=== PATIENT | male | born 1980 | race Two or more races ===

== ENCOUNTER 2025-01-11 17:26 | Emergency (ER) | payer OTHER ==
[~2025-01-11] VITALS: Ht 182.9 cm; Wt 112.0 kg
[2025-01-11] MEDS ORDERED: COZAAR25 MG (17:47)
[2025-01-11 19:03] LABS: BASO % 0.1 % (0.1-1.2); EOS # 0.00 (0.04-0.54); EOS % 0.0 % (0.7-7.0); LYMPH # 0.72 (1.18-3.74); LYMPH % 5.1 % (19.3-53.1); MEAN PLATELET VOLUME 9.70 fl (9.4-12.4); MONO # 0.57 (0.24-0.82); MONO % 4.0 % (4.7-12.5); NEUT # 12.88 (1.56-6.13); NEUT % 90.4 % (34.0-71.1); RED CELL DISTRIBUTION WIDTH 13.4 % (11.6-14.4)
[2025-01-11 19:20] LABS: COVID-19 AG NEGATIVE (NEGATIVE)
[2025-01-11 19:24] LABS: URINE APPEARANCE Clear; URINE BILIRRUBIN Negative (NEGATIVE); URINE BLOOD Large; URINE COLOR Yellow; URINE KETONE Trace (NEGATIVE); URINE LEUKOCYTE Trace; URINE NITRATE Negative; URINE PROTEIN Trace (NEGATIVE); URINE UROBILINOGEN 1.0 E.U./dl
[2025-01-11 19:24] LABS: ALT/SGPT 58.0 U/L (12-78); AST/SGOT 21.0 U/L (15-37); BILIRUBIN TOTAL 0.83 mg/dL (0.3-1.2); BUN CREA RATIO 10.0 (7.0-25.0); CREATININE SERUM 1.23 mg/dL (0.70-1.30); GFR 63.35; GLOBULINA 3.7 G/DL (2.4-3.5); GLUCOSE FASTING 175.0 mg/dL (65-100); OSMOLALITY SERUM 287.0 MOSM/KG (275-295)
[2025-01-11 19:25] LABS: URINE BACTERIA 45.5 uL (0.0-1933); URINE EPITHELIAL CELLS 2.3 uL (0.0-38.8); URINE RBC 4055.5 uL (0.0-20.8); URINE WBC 15.5 uL (0.0-23.2)
[2025-01-11 19:37] LABS: URINE CAST 0.00 uL (0.0-1.40); URINE GLUCOSE 100 MG/DL (NEGATIVE)
[2025-01-11] MEDS ORDERED: KETOROLAC TROMETHAMINE 60 MG VIAL IM ONE (21:00)
[2025-01-11] MEDS ORDERED: ONDANSETRON HCL 2 MG/ML VIAL IV ONE (21:00)
[2025-01-11] MEDS ORDERED: IBUPROFEN800 MG PO (22:40)
[2025-01-11] MEDS ORDERED: LEVOFLOXACIN500 MG PO (22:40)
[2025-01-11] MEDS ORDERED: CEFTRIAXONE SODIUM 1,000 MG VIAL IM ONE (23:00)
== END 2025-01-11 23:05 | disposition home or self-care (01) ==
LOC: ER 17:26
PROVIDERS: Preventive Medicine Public Health & General Preventive Medicine
DX: N43.3 Hydrocele, unspecified (principal); N45.1 Epididymitis; Z20.822 Contact with and (suspected) exposure to COVID-19

== ENCOUNTER 2025-04-20 17:51 | Emergency (ER) | payer OTHER ==
[~2025-04-20] VITALS: Ht 182.9 cm; Wt 112.0 kg
[~2025-04-20 17:51] MED LIST: COZAAR25 MG; IBUPROFEN800 MG PO; LEVOFLOXACIN500 MG PO
[2025-04-20 20:28] VITALS: BP 126/78; O2SAT 99
[2025-04-20] MEDS ORDERED: HYDROCHLOROTHIA25 MG (20:28)
[2025-04-20] MEDS ORDERED: DEXAMETHASONE SODIUM PHOSPHATE 4 MG/ML VIAL IM STA (20:55)
[2025-04-20] MEDS ORDERED: KETOROLAC TROMETHAMINE 30 MG VIAL IM STA (20:55)
[2025-04-20] MEDS ORDERED: ORPHENADRINE CITRATE 30 MG/ML AMPUL IM STA (20:55)
[2025-04-20] MEDS ORDERED: ORPHENADRINE CITRATE 30 MG/ML AMPUL ONE (21:14)
[2025-04-20] MEDS ORDERED: KETOROLAC TROMETHAMINE 30 MG VIAL ONE (21:15)
[2025-04-20 21:37] LABS: BASO % 0.3 % (0.1-1.2); EOS # 0.04 (0.04-0.54); EOS % 0.4 % (0.7-7.0); LYMPH # 1.74 (1.18-3.74); LYMPH % 18.2 % (19.3-53.1); MEAN PLATELET VOLUME 9.40 fl (9.4-12.4); MONO # 1.11 (0.24-0.82); MONO % 11.6 % (4.7-12.5); NEUT # 6.60 (1.56-6.13); NEUT % 69.3 % (34.0-71.1); RED CELL DISTRIBUTION WIDTH 12.9 % (11.6-14.4)
[2025-04-20 22:12] LABS: INR 1.04
[2025-04-20 22:18] LABS: ALT/SGPT 36.0 U/L (12-78); AST/SGOT 14.0 U/L (15-37); BILIRUBIN TOTAL 1.19 mg/dL (0.3-1.2); BUN CREA RATIO 13.0 (7.0-25.0); CREATININE SERUM 0.93 mg/dL (0.70-1.30); GFR 87.47; GLOBULINA 3.7 G/DL (2.4-3.5); GLUCOSE FASTING 105.0 mg/dL (65-100); OSMOLALITY SERUM 278.0 MOSM/KG (275-295)
[2025-04-20 23:14] LABS: URINE APPEARANCE Clear; URINE BILIRRUBIN Negative (NEGATIVE); URINE BLOOD Negative; URINE COLOR Yellow; URINE GLUCOSE Negative (NEGATIVE); URINE KETONE Negative (NEGATIVE); URINE LEUKOCYTE Negative; URINE NITRATE Negative; URINE PROTEIN Negative (NEGATIVE); URINE UROBILINOGEN 1.0 E.U./dl
[2025-04-20 23:18] LABS: URINE RBC 4.9 uL (0.0-20.8); URINE WBC 2.5 uL (0.0-23.2)
[2025-04-20 23:26] LABS: URINE BACTERIA 3.4 uL (0.0-1933); URINE CAST 0.14 uL (0.0-1.40); URINE EPITHELIAL CELLS 0.7 uL (0.0-38.8)
[2025-04-21] MEDS ORDERED: MEDROLPACK PO (00:50)
[2025-04-21] MEDS ORDERED: NORFLEX100MG PO (00:50)
== END 2025-04-21 01:13 | disposition home or self-care (01) ==
LOC: ER 17:52
PROVIDERS: Physician Assistant Medical
DX: M54.59 Other low back pain (principal); M54.9 Dorsalgia, unspecified; M48.061 Spinal stenosis, lumbar region without neurogenic claudication